=== PATIENT | male | born 1970 | race Two or more races ===

== ENCOUNTER → 2024-11-26 | Outpatient (CLI) | payer BC, SELFPAY ==
[2024-11-26 15:54] LABS: Misc Send Out* See Sep Rpt
[2024-11-26 16:23] LABS: Basophils % (Auto) 1 % (0-2.5); Eosinophils # (Auto) 0.2 Thou/mm3 (0.0-0.5); Eosinophils % (Auto) 5 % (0-10); Hemoglobin 14.1 g/dL (13.5-16.0); Immature Granulocytes % (Auto) 0 % (0-0); Immature Granulocytes Auto 0.02 Thou/mm3 (0.00-0.00); Lymphocytes # (Auto) 1.9 Thou/mm3 (1.0-4.8); Lymphocytes % (Auto) 42 % (10-50); Mean Corpuscular HGB Conc 37.1 g/dl (31.0-37.0); Mean Corpuscular Hemoglobin 35.1 pg (25.0-35.0); Mean Corpuscular Volume 95 fL (80-100); Monocytes # (Auto) 0.4 Thou/mm3 (0.0-0.8); Monocytes % (Auto) 9 % (0-12); Neutrophils % (Auto) 44 % (37-80); Nucleated Red Blood Cell % 0 /100 WBC (0); Platelet Count 148 Thou/mm3 (140-440); RDW Standard Deviation 44.3 fL (35.1-43.9); Red Blood Count 4.02 Miln/mm3 (4.50-5.90); White Blood Count 4.6 Thou/mm3 (3.8-10.6)
[2024-11-26 16:56] LABS: Alanine Aminotransferase 36 U/L (10-49); Albumin, Serum 4.2 gm/dL (3.5-5.0); Albumin/Globulin Ratio 1.4 (1.2-2.2); Alkaline Phosphatase 149 U/L (46-116); Anion Gap 5 (7-16); Aspartate Amino Transferase 42 U/L (0-34); BUN/Creatinine Ratio 13 Ratio (12-20); Bilirubin,Total 0.4 mg/dL (0.3-1.2); Blood Urea Nitrogen 12 mg/dL (9-23); C-Reactive Protein < 0.5 mg/dL (0.0-0.9); Calcium 8.9 mg/dL (8.3-10.6); Calcium (Corrected) 8.9 mg/dL (8.5-10.1); Carbon Dioxide 31.7 mMol/L (20.0-31.0); Chloride 105 mMol/L (98-107); Creatinine (Component) 0.9 mg/dL (0.6-1.3); Glucose 79 mg/dL (74-106); Osmolality,Calculated 281 (275-295); Potassium 4.5 mMol/L (3.4-5.1); Sodium 142 mMol/L (136-145); Total Protein 7.2 gm/dL (5.7-8.2); eGFR > 60 See Note
[2024-11-26 16:57] LABS: Sed Rate (ESR) 2 mm/hr (0-20)
== END | disposition home or self-care (01) ==
LOC: COPL 15:34
PROVIDERS: PCP Family Medicine; Referring Provider Specialist; Visit Provider Specialist
DX: R19.7 Diarrhea, unspecified (principal); R10.9 Unspecified abdominal pain
CPT/HCPCS: 36415; 80053; 82784; 85025; 85652; 86140; 86364

== ENCOUNTER 2024-12-29 11:05 | Day surgery (SDC) | payer BC, SELFPAY ==
--- NOTE | 2024-12-26 14:36 | SUR.PREOP ---
Patient called and VoiceMail left regarding arrival time change due to cancellations in the schedule, patient told to come in at 1030 instead of 1130
--- NOTE | 2024-12-26 15:18 | EKG_ITS ---
[facility] Test Date: 2024-12-26 Pat Name: MARIETTA WALTON Department: Room: - Gender: Male Swing Manager: GEORGINA : 1970 Requested By: Nola Hirsch Order Number: [id number] Reading MD: Nola Hirsch Measurements Intervals [place] Rate: 76 P: 62 ID: [id number] QRS: 55 QRSD: 89 T: 59 QT: 353 QTc: 397 Interpretive Statements SINUS RHYTHM No previous ECG available for comparison /[id number]
[2024-12-26 15:56] LABS: Alanine Aminotransferase 44 U/L (10-49); Albumin, Serum 4.3 gm/dL (3.5-5.0); Albumin/Globulin Ratio 1.3 (1.2-2.2); Alkaline Phosphatase 99 U/L (46-116); Anion Gap 6 (7-16); Aspartate Amino Transferase 34 U/L (0-34); BUN/Creatinine Ratio 6 Ratio (12-20); Bilirubin,Total 0.5 mg/dL (0.3-1.2); Blood Urea Nitrogen 7 mg/dL (9-23); Carbon Dioxide 33.1 mMol/L (20.0-31.0); Chloride 105 mMol/L (98-107); Creatinine (Component) 1.1 mg/dL (0.6-1.3); Globulin 3.3 gm/dL (2.3-3.5); Glucose 138 mg/dL (74-106); Osmolality,Calculated 286 (275-295); Potassium 4.4 mMol/L (3.4-5.1); Sodium 144 mMol/L (136-145); Total Protein 7.6 gm/dL (5.7-8.2); eGFR > 60 See Note
[2024-12-26 17:17] LABS: Prothrombin Time 10.9 Seconds (9.0-12.2)
[2024-12-29] VITALS (7 sets, daily range): BP systolic 116–140; BP diastolic 71–97; PULSE 80–94; RESP 15–20; TEMP 36.2–36.8; O2SAT 98–100; BMI 22.1
[2024-12-29] MEDS: RINGERS LACTATED 1000 ML 1,000 ML 20 ML IV (13:03)
== END 2024-12-29 14:15 | disposition home or self-care (01) ==
PROVIDERS: PCP Family Medicine; Referring Provider Specialist; Visit Provider Specialist
PROC: 0DBE8ZX Excision of Large Intestine, Via Natural or Artificial Opening Endoscopic, Diagnostic (ICD-10-PCS; CPT 45380; principal; 2024-12-29 12:15)
PROC: (CPT 43239; 2024-12-29 12:15)
DX: K20.90 Esophagitis, unspecified without bleeding (principal); K29.70 Gastritis, unspecified, without bleeding; K31.89 Other diseases of stomach and duodenum; Z01.810 Encounter for preprocedural cardiovascular examination
CPT/HCPCS: 43239; 36415; 80053; 85610; 85730; 93005; A4649; J7120